=== PATIENT | male | born 2000 | race African-American/Black ===

== ENCOUNTER 2020-01-20 10:48 | Emergency (ER) | payer OTHER, BC ==
[~2020-01-20] VITALS: Ht 193 cm; Wt 88.9 kg
[2020-01-20 11:02] VITALS: Ht 193 cm; Wt 88.9 kg
[2020-01-20 12:43] VITALS: BP 119/54
== END 2020-01-20 12:43 | disposition home or self-care (01) ==
LOC: ED 10:48
DX: S70.12XA Contusion of left thigh, initial encounter (principal); V49.49XA Driver injured in collision with other motor vehicles in traffic accident, initial encounter; Y93.I9 Activity, other involving external motion; Y92.488 Other paved roadways as the place of occurrence of the external cause; Y99.8 Other external cause status